=== PATIENT | female | born 1950 | race Caucasian/White ===

== ENCOUNTER → 2020-01-23 | Outpatient (CLI) | payer MEDICARE ==
--- NOTE | 2020-01-23 15:29 | REP ---
PARTIAL LUMBAR SPINE SERIES: THREE VIEWS. HISTORY: Contusion of the lower back. FINDINGS: A dorsal column stimulator is seen in the thoracic spinal canal. Vascular calcification is noted in the abdominal aorta. There is an aneurysm of the abdominal aorta which measures 4.3 cm in AP dimension on the lateral radiograph. This would include approximately 20% magnification. There are no comparison films. Lumbar vertebral body heights are preserved. Alignment is normal. There is no evidence of spondylolysis or spondylolisthesis. There are osteoarthritic facet changes bilaterally at L4-5 and L5-S1. Disc spaces are preserved. Sacrum and SI joints appear intact. IMPRESSION: 1. A 4.3 cm abdominal aortic aneurysm noted incidentally. 2. Dorsal column stimulator in place. 3. Osteoarthritic facet disease bilaterally L4-5 and L5-S1. Electronically Signed by Iker Tavares MD 01/23/2020 06:16 P
== END ==
LOC: M ADAMS 13:39
PROVIDERS: ATTEND Physician Assistant
DX: S30.0XXA Contusion of lower back and pelvis, initial encounter (principal); I71.4 Abdominal aortic aneurysm, without rupture; M47.817 Spondylosis without myelopathy or radiculopathy, lumbosacral region; X58.XXXA Exposure to other specified factors, initial encounter; Y92.9 Unspecified place or not applicable